=== PATIENT | female | born 1955 | race Caucasian/White ===

== ENCOUNTER 2021-02-20 11:18 | Outpatient (REF) | payer MEDICARE, SELFPAY ==
[2021-02-20 14:07] LABS: Hematocrit 42.2 % (37-47); Hemoglobin 13.8 g/dl (12.0-16.0); Mean Corpuscular HGB Conc 32.7 g/dl (31.0-35.0); Mean Corpuscular Hemoglobin 28.2 pg (27.0-33.0); Mean Corpuscular Volume 86.3 fL (80-98); Mean Platelet Volume 10.3 fL (9.4-12.3); Platelet Count 420 X10*3/uL (160-400); Red Blood Count 4.89 X10*6/uL (4.20-5.50); Red Cell Distribution Width 12.8 % (11.0-16.0); White Blood Count 7.7 X10*3/uL (4.8-10.8)
[2021-02-20 14:43] LABS: Alanine Aminotransferase 24 U/L (0-31); Albumin Level 4.4 g/dL (3.5-5.0); Alkaline Phosphatase 102 U/L (39-117); Anion Gap 15 (12-20); Aspartate Amino Transferase 24 U/L (5-31); Bilirubin Total 0.6 mg/dL (0.0-1.0); Blood Urea Nitrogen 15 mg/dL (9-16); Calcium 9.4 mg/dL (8.4-10.2); Carbon Dioxide 28 mmol/L (22-29); Chloride 98 mmol/L (96-108); Cholesterol 238 mg/dL; Estimated Glomerular Filt Rate 51; Glucose Fasting 92 mg/dL (60-99); HDL Cholesterol 52 mg/dL; LDL Cholesterol Calculated 147 mg/dl; Potassium 4.1 mmol/L (3.3-5.1); Sodium 137 mmol/L (135-145); Total Protein 7.6 g/dL (6.5-8.0); Triglycerides 198 mg/dL
[2021-02-20 15:06] LABS: TSH reflex Free T4 1.57 uIU/mL (0.32-4.0)
== END 2021-02-20 11:19 | disposition home or self-care (01) ==
LOC: HO.HMGCLDS 11:18
PROVIDERS: PCP Internal Medicine; Visit Provider Internal Medicine
DX: E78.2 Mixed hyperlipidemia (principal); F32.9 Major depressive disorder, single episode, unspecified; I10 Essential (primary) hypertension
CPT/HCPCS: 36415; 80053; 80061; 84443; 85027

== ENCOUNTER 2022-09-02 11:18 | Outpatient (REF) | payer BC, SELFPAY ==
[2022-09-02 14:16] LABS: MANUAL DIFF FLAG NO
[2022-09-02 14:28] LABS: Basophils Absolute Auto 0.1 X10*3/uL (0.0-0.2); Basophils Percent Auto 1.4 % (0-2); Eosinophils Absolute Auto 0.4 X10*3/uL (0.0-0.4); Eosinophils Percent Auto 5.5 % (0-4); Hematocrit 40.5 % (37.0-47.0); Hemoglobin 13.3 g/dl (12.0-16.0); Imm Gran Abs Auto 0.02 X10*3/uL (0.00-0.03); Imm Gran Pct Auto 0.3 % (0.0-0.4); Lymphocytes Absolute Auto 1.9 X10*3/uL (1.2-4.9); Lymphocytes Percent Auto 24.9 % (20-40); Mean Corpuscular HGB Conc 32.8 g/dl (31.0-35.0); Mean Corpuscular Hemoglobin 27.5 pg (27.0-33.0); Mean Corpuscular Volume 83.7 fL (80.0-98.0); Mean Platelet Volume 10.6 fL (9.4-12.3); Monocytes Absolute Auto 0.5 X10*3/uL (0.1-1.2); Monocytes Percent Auto 6.8 % (2-11); Neutrophils Absolute Auto 4.8 x10*3/uL (2.0-8.3); Neutrophils Percent Auto 61.1 % (45-73); Platelet Count 389 X10*3/uL (160-400); Red Blood Count 4.84 X10*6/uL (4.20-5.50); Red Cell Distribution Width 12.9 % (11.0-16.0); White Blood Count 7.8 X10*3/uL (4.8-10.8)
[2022-09-02 15:22] LABS: Alanine Aminotransferase 20 U/L (0-31); Albumin Level 4.1 g/dL (3.5-5.0); Alkaline Phosphatase 104 U/L (39-117); Anion Gap 14 (12-20); Aspartate Amino Transferase 20 U/L (5-31); Bilirubin Total 0.7 mg/dL (0.0-1.0); Blood Urea Nitrogen 12 mg/dL (9-16); Calcium 9.3 mg/dL (8.4-10.2); Carbon Dioxide 28 mmol/L (22-29); Chloride 102 mmol/L (96-108); Cholesterol 159 mg/dL; Estimated Glomerular Filt Rate 58; Glucose Fasting 78 mg/dL (60-99); HDL Cholesterol 47 mg/dL; LDL Cholesterol Calculated 81 mg/dl; Potassium 3.9 mmol/L (3.3-5.1); Sodium 140 mmol/L (135-145); Total Protein 6.9 g/dL (6.5-8.0); Triglycerides 157 mg/dL
[2022-09-02 15:27] LABS: TSH reflex Free T4 1.79 uIU/mL (0.32-4.0)
== END 2022-09-02 11:19 | disposition home or self-care (01) ==
LOC: HO.HMGCLDS 11:18
PROVIDERS: PCP Internal Medicine; Visit Provider Internal Medicine
DX: Z00.00 Encounter for general adult medical examination without abnormal findings (principal); E55.9 Vitamin D deficiency, unspecified; E78.2 Mixed hyperlipidemia; I10 Essential (primary) hypertension
CPT/HCPCS: 36415; 80053; 80061; 84443; 85025

== ENCOUNTER 2022-09-04 11:54 | Outpatient (REF) | payer BC, SELFPAY ==
[2022-09-04 13:59] LABS: Appearance Urine Clear; Color Urine Yellow; Glucose Urine UA Negative (Negative); Leukocyte Esterase Urine Moderate (2+) (Negative); Nitrite Urine Negative (Negative); PH 6.5 (5.0-9.0); Specific Gravity - Urine 1.015 (1.005-1.025); UMIC TRIGGER UACC YES; Urine Blood Negative (Negative); Urine Ketones Negative (Negative); Urine Protein Negative (Neg-Trace)
[2022-09-04 14:02] LABS: Bacteria Urine None Seen (None Seen); Hyaline Casts Urine 0-2 /LPF (0-2); RBC Urine 0-2 /HPF (0-2); Squamous Epithelial Cell Urine 0-2 /HPF (0-2); UACC Culture Trigger YES; WBC Urine >50 /HPF (0-5)
== END 2022-09-04 11:55 | disposition home or self-care (01) ==
LOC: HO.HMGCLDS 11:54
PROVIDERS: PCP Internal Medicine; Visit Provider Internal Medicine
DX: R30.0 Dysuria (principal)
CPT/HCPCS: 81001; 87086

== ENCOUNTER 2024-01-20 13:59 | Outpatient (AMB) | payer BC, SELFPAY ==
--- NOTE | 2024-01-20 14:00 | A.OFFPC_ITS ---
Vital Signs 01/20/24 14:09 Height 5 ft 6 in Weight 217 lb BMI 35.0 Intake Visit Reasons: ok'd per Dr. Pittman Allergies amlodipine Adverse Reaction (Unknown, Verified 01/20/24 14:02) edema Medication List - Last Reconciled 01/20/24 by Madeleine Pittman MD aspirin 81 mg PO DAILY bupropion HCl SR (Wellbutrin SR) 400 mg (2 x 200 mg) PO DAILY coenzyme Q10 (Ultra CoQ10) 75 mg PO DAILY cranberry extract 200 mg PO DAILY escitalopram oxalate 20 mg PO DAILY irbesartan 300 mg PO DAILY metoprolol succinate ER 75 mg (1.5 x 50 mg) PO DAILY omeprazole 20 mg PO DAILY rosuvastatin (Crestor) 20 mg PO DAILY triamterene-hydrochlorothiazid 37.5-25 mg 1 cap PO DAILY Tobacco use date assessed: 01/20/24 Fall risk assessment: No Falls in past year Last assessed Fall Risk: 01/20/24 Dental Screening Dental Screen Date: 01/20/24 Did you have a dental visit in the last 12 months?: Yes Did you have a dental problem in the last 6 months where you did not have access to dental care?: No Was dental information given to patient?: Patient has dentist HPI ok'd per Dr. Pittman HPI Details This is a Telehealth visit. Patient has been taking medications for hypertension hyperlipidemia chronic depression and anxiety. She reports feeling anxious when leaving the house and has not been out of the house for few months. She denies suicide ideation , change in appetite or sleep pattern. She has been trying to find a therapist unsuccessfully for a year and a half. FORMERLY [facility], [facility]–1983 Medical History Mammogram declined Annual physical exam Anxiety Depression Hyperlipidemia GERD (gastroesophageal reflux disease) HTN (hypertension) Surgical History H/O colonoscopy Social History Housing: House Alcohol intake: current Alcohol intake frequency: a few times a month Patient Tobacco Use Status: Former Tobacco user e-Cigarette/Vaping Use: Never Used service: No Current occupational status: retired Cognitive needs: No Hearing needs: No Vision needs: Yes Questionnaire PHQ-9 Over the last 2 weeks, how often have you been bothered by any of the following problems? 1. Little interest or pleasure in doing things: several days 2. Feeling down, depressed, or hopeless: several days 3. Trouble falling or staying asleep, or sleeping too much: several days 4. Feeling tired or having little energy: more than half the days 5. Poor appetite or overeating: not at all 6. Feeling bad about yourself - or that you are a failure or have let yourself or your family down: not at all 7. Trouble concentrating on things, such as reading the newspaper or watching television: several days 8. Moving or speaking so slowly that other people could have noticed. Or the opposite - being so fidgety or restless that you have been moving around a lot more than usual: not at all 9. Thoughts that you would be better off or of hurting yourself in some way: not at all Total score: 6 Depression Screening Interpretation: Negative Depression Screening Done: Yes 28490 - PHQ-9 Billing: Yes Source: Developed by Drs. Bao Matthews, Simin Doe, Mani Garcia and colleagues, with an educational william from [employer]. Thrive Questionnaire Date Thrive assessed: 01/20/24 I am a: Patient What is your living situation today?: I have a steady place to live Within the past 12 months, did the food you bought not last and you didn't have the money to get more?: Never true Within the past 12 months, did you worry whether your food would run out before you got money to buy more?: Never true Do you have trouble paying for medicines?: No Do you have trouble getting transportation to medical appointments?: No Do you have trouble paying your heating and electricity bill?: No Do you have trouble taking care of your child, family member or friend?: No Do you have trouble with day-to-day activities such as bathing, preparing meals, shopping, managing finances, etc.?: No Are you currently unemployed and looking for a job?: No Are you interested in more education?: No Please select the resources that you would like help with: None THRIVE Score: 0 AUDIT C Alcohol Use Questionnaire (AUDIT-C) 1. How often do you have a drink containing alcohol?: Never 3. How often do you have six or more drinks on one occasion?: Never Total Score: 0 EMERALD-7 AMB Questionnaire EMERALD-7 Date EMERALD - 7 assessed: 01/20/24 Feeling nervous, anxious, or on edge: 1 = Several days Not being able to stop or control worryin = More than half the days Worrying too much about different things: 2 = More than half the days Trouble relaxin = Several days Being so restless that it is hard to sit still: 0 = Not at all Becoming easily annoyed or irritable: 1 = Several days Feeling afraid as if something awful might happen: 1 = Several days Total EMERALD-7 score (0-4 normal; 5-9 mild; 10-14 moderate; 15-21 severe): 8 Source: Developed by Drs. Bao Matthews, Simin Doe, Mani Garcia and colleagues, with an educational william from [employer]. EMERALD-7 Assessment Billing EMERALD-7 Assessment Tool: EMERALD-7 Assessment 52012 Review of Systems Const All systems reviewed & are unremarkable except as noted in HPI and below Card Reports no additional complaints Resp Reports no additional complaints GI Reports no additional complaints Physical exam (Primary Care) Vital Signs: Last Vital Signs BP 148/82 H 01/20/24 14:09 BMI result Body Mass Index 35.0 Tobacco/Smoking Status: Tobacco use Status Tobacco use date assessed 01/20/24 01/20/24 14:10 Patient Tobacco Use Status Former Tobacco user 01/20/24 14:10 e-Cigarette/Vaping Use Never Used 01/20/24 14:00 PHQ-9: PHQ-9 Score PHQ-9: Total score 6 01/20/24 15:24 Depression Screening Interpretation: Negative Thrive Assessment: Date of Thrive Assessment Date Thrive assessed 01/20/24 01/20/24 14:10 Telehealth Telehealth Telehealth Platform: Telephone Location of provider rendering services: practice address Location of patient: address on file Patient Identification confirmed using: Name, : Yes Telehealth method: voice only Patient verbally consented to treatment: Yes Patient verbally consented to billing insurance company: Yes Patient informed of any privacy concerns related to visit: Yes Minutes spent on Phone/Video with Pt.: 15 Assessment and Plan Assessment & Plan (1) HTN (hypertension): Comment: x 20 yrs Code(s): I10 - Essential (primary) hypertension Plan: Patient will continue current medications. She was advised to schedule an in- person appointment with the next month to get more refills and has a fasting blood work (2) Mixed hyperlipidemia: Code(s): E78.2 - Mixed hyperlipidemia Plan: Continue statin (3) Anxiety: Code(s): F41.9 - Anxiety disorder, unspecified Plan: Continue current medications and patient will be referred to counseling during her next in-person office appointment Coding Level of Care Code Tele New Pt Level 4 (28569) Diagnoses HTN (hypertension) I10 Mixed hyperlipidemia E78.2 Anxiety F41.9 Additional Codes EMERALD-7 Assessment Billing - EMERALD-7 Assessment Tool: EMERALD-7 Assessment 19158 ([id number])
[2024-01-20 14:09] VITALS: BMI 35.0
== END 2024-01-20 15:10 | disposition home or self-care (01) ==
LOC: HO.HMCC 13:59
PROVIDERS: PCP Internal Medicine; Visit Provider Internal Medicine
DX: I10 Essential (primary) hypertension (principal); E78.2 Mixed hyperlipidemia; F41.9 Anxiety disorder, unspecified

== ENCOUNTER → 2024-01-20 13:59 | Outpatient (BNVA) | payer BC, SELFPAY | PROVIDERS: PCP Internal Medicine; Visit Provider Internal Medicine | DX: I10 Essential (primary) hypertension (principal); E78.2 Mixed hyperlipidemia; F41.9 Anxiety disorder, unspecified; Z79.899 Other long term (current) drug therapy | CPT/HCPCS: 96127 ==

== ENCOUNTER 2024-02-15 13:36 | Outpatient (REF) | payer BC, SELFPAY ==
[2024-02-15 16:42] LABS: MANUAL DIFF FLAG NO
[2024-02-15 17:00] LABS: Basophils Absolute Auto 0.1 X10*3/uL (0.0-0.2); Basophils Percent Auto 0.5 % (0-2); Eosinophils Absolute Auto 0.1 X10*3/uL (0.0-0.4); Eosinophils Percent Auto 0.9 % (0-4); Hematocrit 39.7 % (37.0-47.0); Hemoglobin 13.5 g/dl (12.0-16.0); Imm Gran Abs Auto 0.03 X10*3/uL (0.00-0.03); Imm Gran Pct Auto 0.3 % (0.0-0.4); Lymphocytes Absolute Auto 1.3 X10*3/uL (1.2-4.9); Lymphocytes Percent Auto 12.5 % (20-40); Mean Corpuscular Hemoglobin 26.6 pg (27.0-33.0); Mean Corpuscular Volume 78.3 fL (80.0-98.0); Mean Platelet Volume 9.8 fL (9.4-12.3); Monocytes Absolute Auto 0.6 X10*3/uL (0.1-1.2); Monocytes Percent Auto 6.2 % (2-11); Neutrophils Percent Auto 79.6 % (45-73); Platelet Count 424 X10*3/uL (160-400); Red Blood Count 5.07 X10*6/uL (4.20-5.50); White Blood Count 10.1 X10*3/uL (4.8-10.8)
[2024-02-15 17:20] LABS: Alanine Aminotransferase 15 U/L (0-31); Albumin Level 4.5 g/dL (3.5-5.0); Alkaline Phosphatase 92 U/L (39-117); Anion Gap 17 (12-20); Aspartate Amino Transferase 31 U/L (5-31); Bilirubin Total 0.8 mg/dL (0.0-1.0); Blood Urea Nitrogen 13 mg/dL (9-16); Calcium 9.9 mg/dL (8.4-10.2); Carbon Dioxide 24 mmol/L (22-29); Chloride 90 mmol/L (96-108); Cholesterol 138 mg/dL (<200); Estimated Glomerular Filt Rate 51; Glucose Fasting 99 mg/dL (60-99); HDL Cholesterol 62 mg/dL (>40); LDL Cholesterol Calculated 58 mg/dL (<100); Potassium 3.3 mmol/L (3.3-5.1); Sodium 128 mmol/L (135-145); Triglycerides 91 mg/dL (<150)
== END 2024-02-15 13:37 | disposition home or self-care (01) ==
LOC: HO.HMGCLDS 13:36
PROVIDERS: PCP Internal Medicine; Visit Provider Internal Medicine
DX: F32.9 Major depressive disorder, single episode, unspecified (principal); F41.9 Anxiety disorder, unspecified; I10 Essential (primary) hypertension; E78.2 Mixed hyperlipidemia; M54.2 Cervicalgia; J06.9 Acute upper respiratory infection, unspecified; Z00.00 Encounter for general adult medical examination without abnormal findings; E55.9 Vitamin D deficiency, unspecified
CPT/HCPCS: 36415; 80053; 80061; 82306; 85025; 96127

== ENCOUNTER 2024-02-15 13:51 | Outpatient (AMB) | payer BC, SELFPAY ==
--- NOTE | 2024-02-15 14:14 | MHC.PC.OV ---
Vital Signs 02/15/24 14:15 Height 5 ft 6 in Weight 217 lb BMI 35.0 BP 136/84 Blood Pressure Location Lt brachial Position Sitting Pulse 81 Pulse Source Pulse Oximeter Pulse Oximetry (%) 97 Oxygen Delivery Method Room Air Intake Visit Reasons: 1 month follow up Intake Note: Pt is here today for 1 month follow up visit. Allergies amlodipine Adverse Reaction (Unknown, Verified 02/15/24 14:20) edema Tobacco use date assessed: 02/15/24 Fall risk assessment: 1 Fall in past year Last assessed Fall Risk: 02/15/24 Dental Screening Dental Screen Date: 01/20/24 HPI 1 month follow up HPI Details Patient presents for the follow-up of hyperlipidemia hypertension chronic anxiety and depression. She complains of sore throat, neck pain and pressure in the left ear for 2 days. Patient denies fever chills night sweats cough. [facility] Medical History Mammogram declined Annual physical exam Anxiety Depression Hyperlipidemia GERD (gastroesophageal reflux disease) HTN (hypertension) Surgical History H/O colonoscopy Social History Housing: House Alcohol intake: current Alcohol intake frequency: a few times a month Patient Tobacco Use Status: Former Tobacco user e-Cigarette/Vaping Use: Never Used service: No Current occupational status: retired Cognitive needs: No Hearing needs: No Vision needs: Yes Questionnaire PHQ-9 Over the last 2 weeks, how often have you been bothered by any of the following problems? 1. Little interest or pleasure in doing things: several days 2. Feeling down, depressed, or hopeless: several days 3. Trouble falling or staying asleep, or sleeping too much: several days 4. Feeling tired or having little energy: several days 5. Poor appetite or overeating: several days 6. Feeling bad about yourself - or that you are a failure or have let yourself or your family down: not at all 7. Trouble concentrating on things, such as reading the newspaper or watching television: several days 8. Moving or speaking so slowly that other people could have noticed. Or the opposite - being so fidgety or restless that you have been moving around a lot more than usual: not at all 9. Thoughts that you would be better off or of hurting yourself in some way: not at all Total score: 6 Depression Screening Interpretation: Negative Depression Screening Done: Yes 91157 - PHQ-9 Billing: Yes Source: Developed by Drs. Bao Matthews, Simin Doe, Mani Garcia and colleagues, with an educational william from [employer]. Thrive Questionnaire Date Thrive assessed: 01/20/24 I am a: Patient What is your living situation today?: I have a steady place to live Within the past 12 months, did the food you bought not last and you didn't have the money to get more?: Never true Within the past 12 months, did you worry whether your food would run out before you got money to buy more?: Never true Do you have trouble paying for medicines?: No Do you have trouble getting transportation to medical appointments?: I choose not to answer this question Do you have trouble paying your heating and electricity bill?: No Do you have trouble taking care of your child, family member or friend?: No Do you have trouble with day-to-day activities such as bathing, preparing meals, shopping, managing finances, etc.?: No Are you currently unemployed and looking for a job?: No Are you interested in more education?: No Please select the resources that you would like help with: None Currently or been in a relationship where the following occur: No concerns reported THRIVE Score: 0 AUDIT C Alcohol Use Questionnaire (AUDIT-C) 1. How often do you have a drink containing alcohol?: Never 3. How often do you have six or more drinks on one occasion?: Never Total Score: 0 EMERALD-7 AMB Questionnaire EMERALD-7 Date EMERALD - 7 assessed: 02/15/24 Feeling nervous, anxious, or on edge: 1 = Several days Not being able to stop or control worryin = Several days Worrying too much about different things: 1 = Several days Trouble relaxin = Several days Being so restless that it is hard to sit still: 0 = Not at all Becoming easily annoyed or irritable: 0 = Not at all Feeling afraid as if something awful might happen: 1 = Several days Total EMERALD-7 score (0-4 normal; 5-9 mild; 10-14 moderate; 15-21 severe): 5 Source: Developed by DrsAmando Matthews, Simin Doe, Mani Garcia and colleagues, with an educational william from [employer]. Review of Systems Const All systems reviewed & are unremarkable except as noted in HPI and below Reports no additional complaints Eyes Reports no additional complaints ENT Reports no additional complaints Card Reports no additional complaints Resp Reports no additional complaints GI Reports no additional complaints Reports no additional complaints Physical exam (Primary Care) Vital Signs: Last Vital Signs Pulse 81 02/15/24 14:15 BP 136/84 02/15/24 14:15 Pulse Ox 97 02/15/24 14:15 Oxygen Delivery Method Room Air 02/15/24 14:15 BMI result Body Mass Index 35.0 Tobacco/Smoking Status: Tobacco use Status Tobacco use date assessed 02/15/24 02/15/24 14:23 Patient Tobacco Use Status Former Tobacco user 02/15/24 14:15 e-Cigarette/Vaping Use Never Used 02/15/24 14:15 PHQ-9: PHQ-9 Score PHQ-9: Total score 6 02/15/24 14:23 Depression Screening Interpretation: Negative Thrive Assessment: Date of Thrive Assessment Date Thrive assessed 01/20/24 02/15/24 14:15 Currently or been in a relationship where the following occur: No concerns reported Const General: no acute distress HENMT Head: Yes normal to inspection Ears: TM's normal bilaterally Face and sinus: Yes normal facial exam Throat: Yes postnasal drainage Eyes General: appearance normal, both eyes and all related structures Neck Neck: Yes no lymphadenopathy and Yes supple Resp Effort & Inspection: normal respiratory effort Auscultation: clear to auscultation bilaterally Cardio Rhythm: regular rhythm Heart sounds: S1 normal heart sound present and S2 normal heart sound present GI Inspection: Yes normal to inspection Palpation (GI): Soft to palpation Percussion: Yes normal to percussion Back/Spine/Pelvis Other: Paraspinal tenderness and muscle spasm in the lower cervical region left more than right Coding Level of Care Code Est Pt Level 4 (19039) Diagnoses Depression F32.9 HTN (hypertension) I10 Mixed hyperlipidemia E78.2 Neck pain M54.2 URI (upper respiratory infection) J06.9 Assessment & Plan Assessment & Plan (1) Depression: Code(s): F32.9 - Major depressive disorder, single episode, unspecified Category: Medical Plan: Continue current medications patient will be referred to a counseling (2) HTN (hypertension): Comment: x 20 yrs Code(s): I10 - Essential (primary) hypertension Category: Medical Plan: Continue current medications (3) Mixed hyperlipidemia: Code(s): E78.2 - Mixed hyperlipidemia Category: Medical Plan: Continue statin, patient had fasting blood work this morning (4) Neck pain: Code(s): M54.2 - Cervicalgia Category: Medical Plan: For chronic neck pain stretching exercises given to the patient. PT is recommended if the symptoms persist (5) URI (upper respiratory infection): Code(s): J06.9 - Acute upper respiratory infection, unspecified Category: Medical Plan: Supportive care discussed with the patient respiratory panel sent to the lab
[2024-02-15 14:15] VITALS: BP 136/84; PULSE 81; O2SAT 97; BMI 35.0
== END 2024-02-15 15:01 | disposition home or self-care (01) ==
PROVIDERS: PCP Internal Medicine; Visit Provider Internal Medicine
DX: F32.9 Major depressive disorder, single episode, unspecified (principal); I10 Essential (primary) hypertension; E78.2 Mixed hyperlipidemia; M54.2 Cervicalgia; J06.9 Acute upper respiratory infection, unspecified

== ENCOUNTER 2024-02-15 14:36 | Outpatient (REF) | payer BC, SELFPAY ==
[2024-02-15 18:18] LABS: Influenza A PCR NEGATIVE (Negative); Influenza B PCR NEGATIVE (Negative); Resp Syncy Virus RNA Qual PCR NEGATIVE (Negative); SARS COV2 PCR INHOUSE NEGATIVE (Negative)
== END 2024-02-15 14:37 | disposition home or self-care (01) ==
LOC: HO.LAB 14:36
PROVIDERS: Visit Provider Internal Medicine
DX: J39.9 Disease of upper respiratory tract, unspecified (principal); Z76.89 Persons encountering health services in other specified circumstances
CPT/HCPCS: 0241U

== ENCOUNTER 2024-03-03 11:20 | Outpatient (REF) | payer BC, SELFPAY ==
[2024-03-03 13:59] LABS: Anion Gap 15 (12-20); Blood Urea Nitrogen 14 mg/dL (9-16); Calcium 9.6 mg/dL (8.4-10.2); Carbon Dioxide 27 mmol/L (22-29); Chloride 97 mmol/L (96-108); Estimated Glomerular Filt Rate 45; Glucose Random 91 mg/dL (60-115); Sodium 135 mmol/L (135-145)
== END 2024-03-03 11:21 | disposition home or self-care (01) ==
LOC: HO.HMGCLDS 11:20
PROVIDERS: PCP Internal Medicine; Visit Provider Internal Medicine
DX: E87.1 Hypo-osmolality and hyponatremia (principal)
CPT/HCPCS: 36415; 80048

== ENCOUNTER 2025-01-11 11:43 | Outpatient (REF) | payer BC, SELFPAY ==
[2025-01-11 16:09] LABS: Appearance Urine Clear; Glucose Urine UA Negative (Negative); PH 7.5 (5.0-9.0); Specific Gravity - Urine 1.015 (1.005-1.025); UMIC TRIGGER UA YES
[2025-01-11 16:20] LABS: MANUAL DIFF FLAG NO
[2025-01-11 16:25] LABS: Hematocrit 38.3 % (37.0-47.0); Hemoglobin 12.7 g/dl (12.0-16.0); Imm Gran Abs Auto 0.02 X10*3/uL (0.00-0.03); Imm Gran Pct Auto 0.2 % (0.0-0.4); Lymphocytes Absolute Auto 2.1 X10*3/uL (1.2-4.9); Mean Corpuscular HGB Conc 33.2 g/dl (31.0-35.0); Mean Corpuscular Hemoglobin 27.1 pg (27.0-33.0); Mean Corpuscular Volume 81.7 fL (80.0-98.0); NRBC Abs Auto 0.000 X10*3/uL (0.0-0.012); NRBC Pct Auto 0.0 /100WBC (0.0-0.2); Platelet Count 393 X10*3/uL (160-400); Red Blood Count 4.69 X10*6/uL (4.20-5.50); White Blood Count 8.1 X10*3/uL (4.8-10.8)
[2025-01-11 16:45] LABS: Alanine Aminotransferase 14 U/L (0-31); Albumin Level 4.5 g/dL (3.5-5.0); Alkaline Phosphatase 94 U/L (39-117); Anion Gap 13 (12-20); Aspartate Amino Transferase 27 U/L (5-31); Blood Urea Nitrogen 16 mg/dL (9-16); Calcium 9.2 mg/dL (8.4-10.2); Carbon Dioxide 28 mmol/L (22-29); Chloride 99 mmol/L (96-108); Cholesterol 159 mg/dL (<200); Estimated Glomerular Filt Rate 47; HDL Cholesterol 57 mg/dL (>40); Potassium 3.6 mmol/L (3.3-5.1); Sodium 136 mmol/L (135-145); Total Protein 7.5 g/dL (6.5-8.0); Triglycerides 114 mg/dL (<150)
[2025-01-11 17:11] LABS: Folate 15.0 ng/mL (> or = 4.0); Vitamin B12 698 pg/mL (200-900)
[2025-01-16 16:44] LABS: Vitamin D 25-OH, D2 <4 ng/mL; Vitamin D 25-OH, D3 71 ng/mL; Vitamin D 25-OH, Total 71 ng/mL (30-100)
== END 2025-01-11 11:44 | disposition home or self-care (01) ==
LOC: HO.HMGCLDS 11:43
PROVIDERS: PCP Internal Medicine; Visit Provider Internal Medicine
DX: Z00.00 Encounter for general adult medical examination without abnormal findings (principal); E78.2 Mixed hyperlipidemia; I10 Essential (primary) hypertension; F32.9 Major depressive disorder, single episode, unspecified; E55.9 Vitamin D deficiency, unspecified; R30.0 Dysuria
CPT/HCPCS: 36415; 80053; 80061; 81001; 82306; 82607; 82746; 84443; 85025; 96127

== ENCOUNTER 2025-01-11 11:43 | Outpatient (AMB) | payer BC, SELFPAY ==
--- NOTE | 2025-01-11 11:52 | MHC.PC.OV ---
Vital Signs 01/11/25 11:53 Height 5 ft 6 in Weight 210 lb BMI 33.9 BP 130/76 Blood Pressure Location Lt brachial Position Sitting Respiration 19 Pulse 58 Pulse Source Pulse Oximeter Temp 98.5 F Temp Source Oral Pulse Oximetry (%) 96 Oxygen Delivery Method Room Air Intake Visit Reasons: Annual PE Intake Note: Pt is here today for PE. Allergies amlodipine Adverse Reaction (Unknown, Verified 01/11/25 11:56) edema Medication List - Last Reconciled 01/11/25 by Madeleine Pittman MD ascorbic acid (vitamin C) (Alive Vitamin C) PO aspirin 81 mg PO DAILY bupropion HCl XL 300 mg PO QAM cholecalciferol (vitamin D3) PO coenzyme Q10 (Ultra CoQ10) 75 mg PO DAILY cranberry extract 200 mg PO DAILY irbesartan 300 mg PO DAILY metoprolol succinate ER 75 mg (1.5 x 50 mg) PO DAILY pt-cn-vczq-FA-Ca carb-vit K (Women's Multivitamin) PO omeprazole 20 mg PO DAILY rosuvastatin 20 mg PO DAILY sertraline 50 mg PO DAILY triamterene-hydrochlorothiazid 37.5-25 mg 1 cap PO DAILY Tobacco use date assessed: 01/11/25 Fall risk assessment: No Falls in past year Last assessed Fall Risk: 01/11/25 Dental Screening Dental Screen Date: 01/11/25 Did you have a dental visit in the last 12 months?: Yes Did you have a dental problem in the last 6 months where you did not have access to dental care?: No Was dental information given to patient?: Patient has dentist HPI Annual PE HPI Details Pt presents for PE. PFSH Medical History (Updated 01/11/25 @ 13:04 by Madeleine Pittman MD) Mammogram declined Annual physical exam Anxiety Depression Hyperlipidemia GERD (gastroesophageal reflux disease) HTN (hypertension) Surgical History H/O colonoscopy Social History Housing: House Alcohol intake: current Alcohol intake frequency: a few times a month Patient Tobacco Use Status: Former Tobacco user e-Cigarette/Vaping Use: Never Used Second Hand Smoke Exposure: No service: No Current occupational status: retired Cognitive needs: No Hearing needs: No Vision needs: Yes Questionnaire PHQ-9 Over the last 2 weeks, how often have you been bothered by any of the following problems? 1. Little interest or pleasure in doing things: not at all 2. Feeling down, depressed, or hopeless: not at all 3. Trouble falling or staying asleep, or sleeping too much: not at all 4. Feeling tired or having little energy: not at all 5. Poor appetite or overeating: not at all 6. Feeling bad about yourself - or that you are a failure or have let yourself or your family down: not at all 7. Trouble concentrating on things, such as reading the newspaper or watching television: not at all 8. Moving or speaking so slowly that other people could have noticed. Or the opposite - being so fidgety or restless that you have been moving around a lot more than usual: not at all 9. Thoughts that you would be better off or of hurting yourself in some way: not at all Total score: 0 Depression Screening Interpretation: Negative Depression Screening Done: Yes 64691 - PHQ-9 Billing: Yes Source: Developed by Drs. Bao Matthews, Simin Doe, Mani Garcia and colleagues, with an educational william from [employer]. Thrive Questionnaire Date Thrive assessed: 01/11/25 I am a: Patient What is your living situation today?: I have a steady place to live Within the past 12 months, did the food you bought not last and you didn't have the money to get more?: Never true Within the past 12 months, did you worry whether your food would run out before you got money to buy more?: Never true Do you have trouble paying for medicines?: No Do you have trouble getting transportation to medical appointments?: I choose not to answer this question Do you have trouble paying your heating and electricity bill?: No Do you have trouble taking care of your child, family member or friend?: No Do you have trouble with day-to-day activities such as bathing, preparing meals, shopping, managing finances, etc.?: No Are you currently unemployed and looking for a job?: No Are you interested in more education?: No Please select the resources that you would like help with: None Currently or been in a relationship where the following occur: No concerns reported THRIVE Score: 0 AUDIT C Alcohol Use Questionnaire (AUDIT-C) 1. How often do you have a drink containing alcohol?: Never 3. How often do you have six or more drinks on one occasion?: Never Total Score: 0 EMERALD-7 AMB Questionnaire EMERALD-7 Date EMERALD - 7 assessed: 01/11/25 Feeling nervous, anxious, or on edge: 0 = Not at all Not being able to stop or control worryin = Not at all Worrying too much about different things: 0 = Not at all Trouble relaxin = Not at all Being so restless that it is hard to sit still: 0 = Not at all Becoming easily annoyed or irritable: 0 = Not at all Feeling afraid as if something awful might happen: 0 = Not at all Total EMERALD-7 score (0-4 normal; 5-9 mild; 10-14 moderate; 15-21 severe): 0 Source: Developed by Drs. Bao Matthews, Simin Doe, Mani Garcia and colleagues, with an educational william from [employer]. EMERALD-7 Assessment Billing EMERALD-7 Assessment Tool: EMERALD-7 Assessment 79608 Review of Systems Const All systems reviewed & are unremarkable except as noted in HPI and below Eyes Reports no additional complaints ENT Reports no additional complaints Card Reports no additional complaints Resp Reports no additional complaints GI Reports no additional complaints Reports no additional complaints Physical exam (Primary Care) Vital Signs: Last Vital Signs Temp 98.5 F 01/11/25 11:53 Pulse 58 01/11/25 11:53 Resp 19 01/11/25 11:53 BP 130/76 01/11/25 11:53 Pulse Ox 96 01/11/25 11:53 Oxygen Delivery Method Room Air 01/11/25 11:53 BMI result Body Mass Index 33.9 Tobacco/Smoking Status: Tobacco use Status Tobacco use date assessed 01/11/25 01/11/25 12:02 Patient Tobacco Use Status Former Tobacco user 01/11/25 12:02 e-Cigarette/Vaping Use Never Used 01/11/25 12:02 PHQ-9: PHQ-9 Score PHQ-9: Total score 0 01/11/25 12:02 Depression Screening Interpretation: Negative Thrive Assessment: Date of Thrive Assessment Date Thrive assessed 01/11/25 01/11/25 12:02 Currently or been in a relationship where the following occur: No concerns reported Const General: no acute distress HENMT Head: Yes normal to inspection General nose exam: Normal external nose present Neck Neck: Yes no lymphadenopathy and Yes supple Resp Effort & Inspection: normal respiratory effort Auscultation: clear to auscultation bilaterally Cardio Rhythm: regular rhythm Heart sounds: S1 normal heart sound present and S2 normal heart sound present GI Inspection: Yes normal to inspection Palpation (GI): Soft to palpation Percussion: Yes normal to percussion Auscultation: normal bowel sounds Coding Level of Care Code Est Pt Prev Care >65y(89709) Diagnoses Mixed hyperlipidemia E78.2 HTN (hypertension) I10 Annual physical exam Z00. Depression F32.9 Additional Codes EMERALD-7 Assessment Billing - EMERALD-7 Assessment Tool: EMERALD-7 Assessment 73483 ([id number]) PHQ-9 - 05319 - PHQ-9 Billing: Yes ([id number]) Assessment & Plan Assessment & Plan (1) Mixed hyperlipidemia: Code(s): E78.2 - Mixed hyperlipidemia Category: Medical Plan: Continue Crestor check lipid profile (2) HTN (hypertension): Comment: x 20 yrs Code(s): I10 - Essential (primary) hypertension Category: Medical Plan: Continue current medications (3) Annual physical exam: Code(s): Z00.00 - Encounter for general adult medical examination without abnormal findings Category: Medical Plan: Well-balanced diet regular physical activity weight loss discussed with the patient. She declined mammogram colonoscopy and DEXA (4) Depression: Comment: Established with a counseling and prescriber [employer] Code(s): F32.9 - Major depressive disorder, single episode, unspecified Category: Medical Plan: STABLE ON CURRENT MEDICATIONS Orders: Orders Complete Blood Count Auto Diff Today E55.9 - Vitamin D deficiency, unspecified, E78.2 - Mixed hyperlipidemia, I10 - Essential (primary) hypertension, Z00.00 - Encounter for general adult medical examination without abnormal findings Lipid Panel Today E55.9 - Vitamin D deficiency, unspecified, E78.2 - Mixed hyperlipidemia, I10 - Essential (primary) hypertension, Z00.00 - Encounter for general adult medical examination without abnormal findings Vitamin B12 and Folate Today E55.9 - Vitamin D deficiency, unspecified, I10 - Essential (primary) hypertension UA w Microscopic Today R30.0 - Dysuria Comprehensive Campbell. Panel Fast Today E55.9 - Vitamin D deficiency, unspecified, E78.2 - Mixed hyperlipidemia, I10 - Essential (primary) hypertension, Z00.00 - Encounter for general adult medical examination without abnormal findings TSH reflex Free T4 Today E55.9 - Vitamin D deficiency, unspecified, E78.2 - Mixed hyperlipidemia, I10 - Essential (primary) hypertension, Z00.00 - Encounter for general adult medical examination without abnormal findings Vitamin D 25-OH (D2 and D3) Today E55.9 - Vitamin D deficiency, unspecified, I10 - Essential (primary) hypertension Medications: Refilled metoprolol succinate ER 75 mg (1.5 x 50 mg) PO DAILY 135 tabs 3RF irbesartan 300 mg PO DAILY 90 tabs 3RF rosuvastatin 20 mg PO DAILY 90 tabs 3RF triamterene-hydrochlorothiazid 37.5-25 mg 1 cap PO DAILY 90 caps 3RF
[2025-01-11 11:53] VITALS: BP 130/76; PULSE 58; RESP 19; TEMP 36.9; O2SAT 96; BMI 33.9
--- OUTSIDE RECORDS SUMMARY | 2025-01-11 14:04 | XMS_ITS | Clinical Summary ---
Author Organization [facility] Address [address] [place] [address] Phone Care Team Providers Care Management Professional Name Role Phone Madeleine Pittman MD Primary Care Provider [phone] Allergies Active Allergy Reactions Criticality Noted Date Comments Amlodipine Rash 04/21/2024 Medications No known medications Active Problems No known active problems Social History Tobacco Use Types Packs/Day Years Used Date Smoking Tobacco: Never Assessed Comments Unknown Sex and Gender Information Value Date Recorded Sex Assigned at Not on file Legal Sex Female 9:08 PM EST Gender Identity Not on file Sexual Orientation Not on file Obstetrics History Last Filed Vital Signs Vital Sign Reading Time Taken Comments Blood Pressure 145/88 04/21/2024 3:55 PM EST Pulse 63 04/21/2024 3:55 PM EST Temperature 36.4 C (97.5 F) 04/21/2024 11:53 AM EST Respiratory Rate 16 04/21/2024 3:55 PM EST Oxygen Saturation 98% 04/21/2024 3:55 PM EST Inhaled Oxygen Concentration - - Weight 89.8 kg (198 lb) 04/21/2024 11:53 AM EST Height 167.6 cm (5' 6 ) 04/21/2024 11:53 AM EST Body Mass Index 31.96 04/21/2024 11:53 AM EST Plan of Treatment Health Maintenance Due Date Last Done Comments Breast Cancer Screening 1954 DTaP,Tdap,and Td Vaccines (1 - Tdap) 1973 Pneumococcal Vaccine: 50+ Years (1 of 1 - PCV) 2004 Zoster Vaccines (1 of 2) 2004 Colorectal Cancer Screening: Colonoscopy 04/21/2024 Falls Risk Assessment 04/21/2024 Hepatitis C Screening 04/21/2024 Medicare Annual Wellness Visit 04/21/2024 Osteoporosis Screening (Bone Density Screening) 04/21/2024 Social Influencers of Health Screening 04/21/2024 Depression Screening 04/26/2024 COVID-19 Vaccine ( season) 2024 01/30/2022, 01/30/2021, 07/21/2020, Additional history exists Influenza Vaccine (#1) 2024 2, 01/30/2021, 01/11/2020, Additional history exists RSV Immunization Adult Patients (1 - 1-dose 75+ series) 2029 HIB Vaccines Aged Out No longer eligi ble based on patient's age to complete this topic HPV Vaccines Aged Out No longer eligi ble based on patient's age to complete this topic Hepatitis A Vaccines Aged Out No long er eligible based on patient's age to complete this topic Hepatitis B Vaccines Aged Out No long er eligible based on patient's age to complete this topic IPV Vaccines Aged Out No longer eligi ble based on patient's age to complete this topic MMR Vaccines Aged Out No longer eligi ble based on patient's age to complete this topic Meningococcal ACWY Vaccine Aged Out N o longer eligible based on patient's age to complete this topic Meningococcal B Vaccine Aged Out No l onger eligible based on patient's age to complete this topic RSV Immunization Patients Under 20 months Aged Out No longer eligible based on patient's age to complete this topic Varicella Vaccines Aged Out No longer eligible based on patient's age to complete this topic Insurance BLUE CROSS - [place] MEDICARE ADVANTAGE Member Subscriber Plan / Payer (Ef fective 2019-Present) Name:Valorie Klein Relation to Subscriber:Self Name:Valorie Klein Payer ID:[id number] Type:Not on file Address: [facility] [address] [place] [id number] Care Teams Management Professional Relationship Specialty Start Date End Date Madeleine Pittman MD PCP - General Internal Medicine 05/30/24
--- OUTSIDE RECORDS SUMMARY | 2025-01-11 14:04 | XMS_ITS | Clinical Summary ---
Author Organization [facility] Address [address] [place] [address] Care Team Providers Care Architect Name Role Phone Madeleine Pittman MD Primary Care Provider [phone] Allergies No known active allergies Medications Medication Sig Dispensed Refills Start Date End Date Status hydrochlorothiazid e (HYDRODIURIL) tablet 25 mg Take 25 mg by mouth daily. 1 2016 Active losartan-hydrochlo rothiazide (HYZAAR) 100-25 MG per tablet TAKE 1 TABLET BY MOUTH EVERY DAY 1 2016 Active metoprolol succinate (TOPROL-XL) 24 hr tablet 50 mg TAKE 1 &1/2 TABLETS BY MOUTH EVERY DAY 1 2016 Active omeprazole (PRILOSEC) 20 MG capsule Take 20 mg by mouth daily. 1 11/27/2016 Active buPROPion (WELLBUTRIN XL) 150 MG 24 hr tablet Take 150 mg by mouth daily. 0 Active escitalopram (LEXAPRO) 20 MG tablet Take 20 mg by mouth daily. 0 Active aspirin 81 MG chewable tablet Chew 81 mg by mouth daily. 0 Active Multiple Vitamin (MULTI VITAMIN PO) Take by mouth. 0 Ac tive Fish Oil-Cholecalcifero l (FISH OIL + D3) 5610-6192 MG-UNIT CAPS Take by mouth. 0 Active Naproxen Sodium 220 MG CAPS Take by mouth. 0 Active sulfamethoxazole-t rimethoprim (BACTRIM DS) 800-160 MG per tablet Take 1 tab q 12 h for 7 days 14 tablet 0 01/05/2017 Active amoxicillin (AMOXIL) 500 MG tablet Take 4 tabs 1 hour prior to dental appointment, colonoscopy or surgical procedure 20 tablet 3 02/05/2017 Active amLODIPine (NORVASC) tablet 5 mg TAKE 1 TABLET BY MOUTH DAILY 1 05/31/2017 Active amoxicillin (AMOXIL) 500 MG capsule TAKE 4 CAPSULES ONE HOUR PRIOR TO DENTAL APPOINTMENT, COLONOSCOPY OR SURGICAL PROCEDURE 20 capsule 2 10/06/2018 Active Active Problems Problem Noted Date Diagnosed Date Status post total left knee replacement 06/15/19 18 Knee stiffness, left 06/15/2017 Knee stiffness, left 03/16/2017 Chronic pain of left knee 02/05/2017 Primary osteoarthritis of left knee 12/02/2016 Family History Medical History Relation Name Comments Lung disease Father Hypertension Mother Relation Name Status Comments Father Mother Social History Tobacco Use Types Packs/Day Years Used Date Smoking Tobacco: Former Cigarettes 1 Alcohol Use Standard Drinks/Week Comments Yes 0 (1 standard drink = 0.6 oz pur e alcohol) weekly Sex and Gender Information Value Date Recorded Sex Assigned at Not on file Gender Identity Not on file Sexual Orientation Not on file Last Filed Vital Signs Vital Sign Reading Time Taken Comments Blood Pressure - - Pulse - - Temperature - - Respiratory Rate - - Oxygen Saturation - - Inhaled Oxygen Concentration - - Weight 88.5 kg (195 lb) 01/15/2017 2:37 PM EDT Height 167.6 cm (5' 6 ) 01/15/2017 2:37 PM EDT Body Mass Index 31.47 01/15/2017 2:37 PM EDT Plan of Treatment Health Maintenance Due Date Last Done Comments Hepatitis C Screening 1954 COVID-19 Vaccine (#1) 04/14/1955 Depression Screening 1966 Preventative Health Evaluation 1972 DTap / Tdap / Td (1 - Tdap) 1973 Colon Cancer Screening (Colonoscopy) 10/14/1999 Breast Cancer Screening (Mammogram) 2004 Shingrix-Zoster Vaccine (1 of 2) 2004 Fall Risk Assessment 10/14/2019 Osteoporosis Screening (DEXA Scan) 10/14/2019 Pneumococcal Vaccine (1 of 1 - PCV) 10/14/2019 Influenza Vaccine (#1) 2024 RSV Adult > 60+ Yrs or Pregn ant (1 - 1-dose 75+ series) 2029 Hepatitis B Vaccines Aged Out No long er eligible based on patient's age to complete this topic RSV Ped < 20 months Aged Out No longe r eligible based on patient's age to complete this topic Care Teams Architect Relationship Specialty Start Date End Date Madeleine Pittman MD PCP - General Eyewear Consultant 12/03/16
== END 2025-01-11 12:59 | disposition home or self-care (01) ==
LOC: HO.HMCC 11:44
PROVIDERS: PCP Internal Medicine; Visit Provider Internal Medicine
DX: E78.2 Mixed hyperlipidemia (principal); I10 Essential (primary) hypertension; Z00.00 Encounter for general adult medical examination without abnormal findings; F32.9 Major depressive disorder, single episode, unspecified